=== PATIENT | male | born 1985 | race Caucasian/White ===

== ENCOUNTER 2023-05-12 09:37 | Outpatient (CLI) | payer OTHER, SELFPAY ==
--- NOTE | 2023-05-12 11:00 | NEURO_ITS ---
Impression: # Complains of left upper extremity numbness. # Normal Nerve Conduction Study. # No evidence of Carpal Tunnel Syndrome or ulnar neuropathy. # Normal needle/EMG exam. Nerve Conduction Studies Anti Sensory Summary Table Stim Site NR Peak (ms) P-T Amp (?V) Site1 Site2 Delta-P (ms) Dist (cm) Cristian (m/s) Left Median Anti Sensory (2-3nd Digit) Wrist 3.3 68.7 Wrist 2-3nd Digit 3.3 14.0 42 Wrist 3.2 61.0 Wrist 2-3nd Digit 3.3 14.0 42 Left Radial Anti Sensory (Base 1st Digit) Wrist 2.3 13.9 Wrist Base 1st Digit 2.3 0.0 Left Ulnar Anti Sensory (5th Digit) Wrist 3.0 34.1 Wrist 5th Digit 3.0 14.0 47 Motor Summary Table Stim Site NR Onset (ms) O-P Amp (mV) Site1 Site2 Delta-0 (ms) Dist (cm) Cristian (m/s) Left Median Motor (Abd Poll Brev) Wrist 3.3 7.1 Elbow Wrist 5.7 33.0 58 Elbow 9.0 6.5 Left Ulnar Motor (Abd Dig Minimi) Wrist 2.5 7.8 A Elbow Wrist 5.7 33.0 58 A Elbow 8.2 6.4 F Wave Studies NR F-Lat (ms) L-R F-Lat (ms) Left Median (Mrkrs) (Abd Poll Brev) 30.00 Left Ulnar (Mrkrs) (Abd Dig Min) 30.51 EMG Side Muscle Nerve Root Ins Act Fibs Amp Dur Recrt Comment Left 1stDorInt Ulnar C8-T1 Nml Nml Nml Nml Nml Left Ext Indicis Radial (Post Int) C7-8 Nml Nml Nml Nml Nml Left Ext Digitorum Radial (Post Int) C7-8 Nml Nml Nml Nml Nml Left BrachioRad Radial C5-6 Nml Nml Nml Nml Nml Left PronatorTeres Median C6-7 Nml Nml Nml Nml Nml Left Abd Poll Brev Median C8-T1 Nml Nml Nml Nml Nml Left ABD Dig Min Ulnar C8-T1 Nml Nml Nml Nml Nml MTDD
== END 2023-05-12 09:38 | disposition home or self-care (01) ==
PROVIDERS: Visit Provider Internal Medicine
DX: M79.602 Pain in left arm (principal)
CPT/HCPCS: 95886; 95909